=== PATIENT | female | born 2000 | race Caucasian/White ===

== ENCOUNTER 2020-02-14 20:39 | Emergency (ER) | payer BC ==
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
[2020-02-14] MEDS ORDERED: Ondansetron 4 MG Tab.DIS PO ONE (21:08)
--- NOTE | 2020-02-14 21:30 | CT ---
Head CT Technique: Multiple axial sections were obtained through the brain. Intravenous contrast was not utilized. Comparison: No prior intracranial imaging is available. Findings: Ventricles along with basal cisterns and sulci over the convexities are within normal limits for the patient's age. No abnormal parenchymal densities are seen. No evidence of intracranial hemorrhage. No midline shift or mass effect is seen. Bone window settings were reviewed. No acute calvarial abnormality is seen. Areas of mucosal thickening are seen within the ethmoid sinuses. No air-fluid levels are seen within the visualized paranasal sinuses. Mastoid sinuses are clear. Impression: 1. Sinus findings which are most likely chronic. 2. No acute intracranial abnormality is appreciated. Diagnostic code #1 Study was dictated in MDT
--- NOTE | 2020-02-14 21:36 | CR ---
Nasal bone: 3 views of the nasal bones were obtained. Comparison: No prior nasal bone study. No fracture or other bony abnormality is appreciated. Impression: 1. No abnormality is identified on nasal bone exam. Diagnostic code #1 Study was dictated in MDT
== END 2020-02-14 22:23 | disposition home or self-care (01) ==
LOC: JD.ED 20:39
DX: S09.90XA Unspecified injury of head, initial encounter (principal); S00.33XA Contusion of nose, initial encounter; Z91.010 Allergy to peanuts; Z91.013 Allergy to seafood; Z91.018 Allergy to other foods; Z79.899 Other long term (current) drug therapy; V43.62XA Car passenger injured in collision with other type car in traffic accident, initial encounter
CPT/HCPCS: 70160; 70450; 99284; A9270; 99283

== ENCOUNTER 2020-11-04 18:06 | Emergency (ER) | payer OTHER, BC ==
[2020-11-04] MEDS ORDERED: Acetaminophen 325 MG Tab PO ONE (18:53)
[2020-11-04] MEDS ORDERED: Naproxen 500 MG Tab PO ONE (18:53)
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
== END 2020-11-04 19:40 | disposition home or self-care (01) ==
LOC: JD.ED 18:06
DX: M54.5 Low back pain (principal); J45.909 Unspecified asthma, uncomplicated; Z91.018 Allergy to other foods; Z91.010 Allergy to peanuts; Z91.013 Allergy to seafood; Z79.899 Other long term (current) drug therapy
CPT/HCPCS: 99283; A9270

== ENCOUNTER 2021-09-16 13:14 | Emergency (ER) | payer BC ==
[2021-09-16] MEDS ORDERED: Famotidine 20 MG Tab PO ONE (13:42)
[2021-09-16] MEDS ORDERED: predniSONE 20 MG Tab PO ONE (13:42)
== END 2021-09-16 15:05 | disposition home or self-care (01) ==
LOC: JD.ED 13:14
DX: L30.9 Dermatitis, unspecified (principal); Z91.010 Allergy to peanuts; Z91.013 Allergy to seafood; Z91.018 Allergy to other foods
CPT/HCPCS: 99283; A9270; J7512

== ENCOUNTER 2023-08-01 13:02 | Emergency (ER) | payer BC ==
[2023-08-01 13:54] LABS: BASOPHILS ABSOLUTE AUTO 0.1 K/mm3 (0.0-0.2); BASOPHILS PERCENT AUTO 1.1 % (0.0-1.0); EOSINOPHILS ABSOLUTE AUTO 1.1 K/mm3 (0.0-0.4); EOSINOPHILS PERCENT AUTO 13.8 % (0.0-6.0); HEMATOCRIT 39.6 % (37.0-47.0); IMMATURE GRAN ABSOLUTE AUTO 0.03 K/mm3 (0.00-0.05); IMMATURE GRAN PERCENT AUTO 0.4 % (0.0-0.4); LYMPHOCYTES PERCENT AUTO 24.5 % (24.0-44.0); MEAN CORPUSCULAR HEMOGLOBIN 26.3 pg (28.0-32.0); MEAN CORPUSCULAR HGB CONC 32.8 g/dl (32.0-36.0); MEAN CORPUSCULAR VOLUME 80.2 fl (83.0-99.0); MEAN PLATELET VOLUME 9.2 fl (9.4-12.3); MONOCYTES ABSOLUTE AUTO 0.4 K/mm3 (0.0-0.8); MONOCYTES PERCENT AUTO 5.3 % (0.0-8.0); NEUTROPHILS ABSOLUTE AUTO 4.5 K/mm3 (1.8-7.7); NEUTROPHILS PERCENT AUTO 54.9 % (41.0-71.0); PLATELET COUNT,PLT 429 K/mm3 (150-400); RED BLOOD CELL COUNT 4.94 M/mm3 (4.10-5.30); WHITE BLOOD CELL COUNT,WBC 8.17 K/mm3 (3.9-11.3)
[2023-08-01 14:10] LABS: A/G RATIO 0.8 (1-2); ALBUMIN 3.1 g/dl (3.4-5.0); ANION GAP 13.5 (5-15); BILIRUBIN TOTAL 0.3 mg/dL (0.2-1.0); BUN/CREATININE RATIO 7.8 (14-18); CALCIUM 8.5 mg/dL (8.5-10.1); CREATININE 0.9 mg/dL (0.55-1.02); EST CRCL DRUG DOSING (CG) 89.45 mL/min; MAGNESIUM 1.5 mg/dL (1.8-2.4); POTASSIUM,K 3.5 mEq/L (3.5-5.1)
[2023-08-01] MEDS ORDERED: Iopamidol 612 MG/ML 100 ML Bottle IVPUSH ONE (15:47)
[2023-08-01] MEDS ORDERED: Sodium Chloride 0.9% 10 ML Syringe FLUSH ONE (15:47)
== END 2023-08-01 17:42 | disposition home or self-care (01) ==
LOC: JD.ED 13:02
DX: R53.83 Other fatigue (principal); T88.59XA Other complications of anesthesia, initial encounter; J45.909 Unspecified asthma, uncomplicated; Z79.899 Other long term (current) drug therapy; Z91.010 Allergy to peanuts; Z91.018 Allergy to other foods; Z91.013 Allergy to seafood
CPT/HCPCS: 36415; 71275; 80053; 81025; 83735; 85025; 93005; 99285; J3490; Q9967; 71270; 93010; 99284

== ENCOUNTER 2024-09-11 15:01 | Emergency (ER) | payer BC ==
[2024-09-11 16:59] LABS: BASOPHILS ABSOLUTE AUTO 0.1 K/mm3 (0.0-0.2); BASOPHILS PERCENT AUTO 1.1 % (0.0-1.0); EOSINOPHILS PERCENT AUTO 12.5 % (0.0-6.0); HEMATOCRIT 44.6 % (37.0-47.0); HEMOGLOBIN 15.1 gm/dl (12.0-16.0); IMMATURE GRAN ABSOLUTE AUTO 0.02 K/mm3 (0.00-0.05); IMMATURE GRAN PERCENT AUTO 0.2 % (0.0-0.4); LYMPHOCYTES ABSOLUTE AUTO 2.4 K/mm3 (1.0-4.8); LYMPHOCYTES PERCENT AUTO 29.4 % (24.0-44.0); MEAN CORPUSCULAR HEMOGLOBIN 27.9 pg (28.0-32.0); MEAN CORPUSCULAR HGB CONC 33.9 g/dl (32.0-36.0); MEAN CORPUSCULAR VOLUME 82.3 fl (83.0-99.0); MEAN PLATELET VOLUME 9.4 fl (9.4-12.3); MONOCYTES ABSOLUTE AUTO 0.5 K/mm3 (0.0-0.8); MONOCYTES PERCENT AUTO 6.6 % (0.0-8.0); NEUTROPHILS PERCENT AUTO 50.2 % (41.0-71.0); PLATELET COUNT,PLT 433 K/mm3 (150-400); RED BLOOD CELL COUNT 5.42 M/mm3 (4.10-5.30); WHITE BLOOD CELL COUNT,WBC 8.03 K/mm3 (3.9-11.3)
[2024-09-11 17:29] LABS: ALANINE AMINOTRANSFERASE,ALT 19 U/L (14-59); ALBUMIN 3.8 g/dl (3.4-5.0); ALKALINE PHOSPHATASE 110 U/L (46-116); ANION GAP 13.8 (5-15); ASPARTATE AMNIOTRANSFERASE,AST 13 U/L (15-37); BILIRUBIN TOTAL 0.4 mg/dL (0.2-1.0); BLOOD UREA NITROGEN,BUN 7 mg/dL (7-18); BUN/CREATININE RATIO 6.4 (14-18); CARBON DIOXIDE,CO2 28 mEq/L (21-32); CHLORIDE,CL 104 mEq/L (98-107); CREATININE 1.1 mg/dL (0.55-1.02); EST CRCL DRUG DOSING (CG) 69.74 mL/min; ESTIMATED GFR 71 mL/min (>60); GLUCOSE RANDOM 93 mg/dL (70-99); POTASSIUM,K 3.8 mEq/L (3.5-5.1); PROTEIN TOTAL,TP 7.5 g/dl (6.4-8.2); SODIUM,NA 142 mEq/L (136-145)
[2024-09-11 17:30] LABS: TROPONIN I HIGH SENSITIVITY < 4 pg/mL (<=51)
[2024-09-11 17:54] LABS: TSH 1.133 uIU/mL (0.358-3.74)
[2024-09-11] MEDS: Sodium Chloride 0.9% 1,000 ML IV STA (18:10)
[2024-09-11] MEDS: Sodium Chloride 0.9% 10 ML Syringe FLUSH PRN (18:10)
== END 2024-09-11 19:40 | disposition home or self-care (01) ==
LOC: JD.ED 15:01
DX: R00.2 Palpitations (principal); R53.83 Other fatigue; J45.909 Unspecified asthma, uncomplicated; Z90.89 Acquired absence of other organs; Z91.018 Allergy to other foods; Z91.010 Allergy to peanuts; Z91.013 Allergy to seafood; Z79.51 Long term (current) use of inhaled steroids; Z79.899 Other long term (current) drug therapy
CPT/HCPCS: 36415; 71046; 80053; 84443; 84484; 85025; 85379; 87428; 93005; 93246; 99285; J7030